=== PATIENT | female | born 1995 | race Caucasian/White ===

== ENCOUNTER 2016-10-05 15:59 | Emergency (ER) | payer OTHER ==
[~2016-10-05] VITALS: Ht 154.9 cm; Wt 49.1 kg
[2016-10-05 16:00] VITALS: TEMP 98.3; Ht 154.9 cm; Wt 49.1 kg
[2016-10-05] MEDS ORDERED: ASCO-324 PO (16:17)
[2016-10-05] MEDS ORDERED: RISP1TAB27 PO (16:17)
[2016-10-05] MEDS ORDERED: ETHI1TAB25 PO (16:17)
[2016-10-05] MEDS ORDERED: BIOT800T PO (16:19)
[2016-10-05] MEDS ORDERED: ACET-62 PO (16:19)
[2016-10-05] MEDS ORDERED: VITA1TAB21 PO (16:19)
[2016-10-05] MEDS ORDERED: CHOL200024 PO (16:19)
--- NOTE | 2016-10-05 16:26 | NUR ---
DR HURTADO IN
--- NOTE | 2016-10-05 16:33 | NUR ---
REPORT TO BRIDGET RHODES
--- NOTE | 2016-10-05 16:35 | ERPDOC ---
Departure Disposition Decision Date: Oct 05, 2016 Disposition Decision Time: 17:05 Disposition: 01 DISCHARGED HOME, SELF-CARE Impression Impression Impression: Primary Impression: Anxiety Additional Impression: Depression Depression Type: unspecified Qualified Codes: F32.9 - Major depressive disorder, single episode, unspecified Condition: Improved Seen By: Physician only Referrals: [facility] 1 Week Follow up within the next week with [facility] Patient Instructions: Anxiety (ED), Depression (ED) Problems/Meds/Labs Reviewed?: Yes Medications reviewed and manag: Yes Additional Instructions: 1) MAY TAKE ATIVAN 1 MG BY MOUTH EVERY 6 HOURS NEEDED FOR ANXIETY OR PANIC ATTACK 2) FOLLOW UP WITH YOUR PSYCHIATRIST IN NEXT 2-3 DAYS 3) CONTINUE HOME MEDICATIONS DIRECTED MAY CONTACT [facility] CRISIS LINE AT Departure Forms: Return to Work/School Permit Return to Work/School Date: October 08, 2016 Follow up care ordered?: Yes Mental Status: Alert, Oriented Scripts Lorazepam (Ativan) 1 Mg Tablet 1 MG PO Q6H for ANXIETY/AGITATION, #10 TAB 0 Refills Prov: ARMIDA HOOVER MD 10/05/16 HPI - Psychosocial General Chief Complaint: Psychiatric Problems Stated Complaint: ANXIETY,DEPRESSION Time Seen by MD: 16:09 Source: patient, family (former guardian) HPI - Psychosocial Initial Comments 20 YO WF who presents to ER for depression and anxiety. Patient and former guardian report problems with depression for "years." Patient just really sought treatment recently and was started on medication about a month ago. She sees a "psychiatrist" at [facility] who recently adjusted her anti- depressant. Today patient reportedly has been "crying all day." She is reportedly anxious and "almost having a panic attack" according to her former guardian. The anxiety is new for the patient. Patient denies suicidal ideation or any thoughts of harming herself. She denies homicidal ideation. She denies hearing voices or other delusions or hallucinations. Patient states she gets very anxious because she has a [address] work early in the morning and this worries her. Patient is also having financial difficulties which is why she gave up her apartment and moved in with her former guardian. These things are very stressful for her. Patient denies shortness of breath, dizziness, chest pain, nausea, vomiting, diarrhea, fever, chills. Patient denies she is . She is currently on control and denies sexual activity. Occurred At: home Associated Symptoms: anxiety, impaired concentration, DENIES: ingestion, injury , suicidal ideation Allergies: Coded Allergies: ibuprofen (Verified Allergy, Unknown, RASH, 10/05/16) pseudoephedrine (Verified Allergy, Unknown, RASH, 10/05/16) Past History Past Medical History Psychological: other (depression) Surgical History Denies Surgeries Family History Family History Comments Unknown. Adopted. Social History Smoking Status: Never smoker Substance Use Type: does not use Marital Status: Single Housing: house Household Members: foster family (former foster mother) Current Occupational Status: employed Review of Systems Constitutional Constitutional: insomnia, DENIES: chills, dizziness, fever, syncope, weakness Eyes General: DENIES: erythema, exudate, photophobia Vision: DENIES: blurring, double vision ENMT Sinuses: DENIES: congestion Nose: DENIES: nosebleeds Mouth/Throat: DENIES: change in swallowing, painful swallowing, sore throat Cardiovascular Cardiac: DENIES: chest pain, dyspnea on exertion Rhythm/Rate: DENIES: irregular beat, palpitations Pulmonary Respiratory: DENIES: cough, dyspnea, pleuritic chest pain, sputum GI Upper Abdomen: DENIES: nausea, vomiting Lower Abdomen: DENIES: constipation, diarrhea General: DENIES: burning, dysuria, frequency, pain, urgency Integumentary Skin: DENIES: rash Neurological General: DENIES: headache, numbness, seizures, syncope, weakness Psychiatric Psychiatric: anxiety, depression, DENIES: delusions, hallucinations, illusions , memory loss, suicidal ideation/attempt Hematologic/Lymphatic Hematologic/Lymphatic: DENIES: anemia, easy bruising Physical Exam General General Nourishment: well nourished, well developed, appears stated age, no acute distress Vitals and Pain First Documented Vital Signs Date Time Temp Pulse Resp B/P Pulse Ox O2 Delivery O2 Flow Rate FiO2 10/05/16 16:00 98.3 89 16 128/67 97 Room Air Weight: Kilograms: 49.100 Height (feet): 5 Height (inches): 1.00 Triage Pain Scale: Normal Exams: Head: Normocephalic w/o trauma Eyes: Pupils are PERRLA w/ EOMI, No scleral icterus ENMT: No facial trauma, nasal exudates, pharyngeal erythema, or exudates are noted Neck: Full range of motion, without adenopathy, JVD, bruits or thyromegaly Chest/Resp: Clear all noe, with good airflow, and symmetry bilaterally CV: Regular rate and rhythm, without murmur or gallop, Pulses 2+ all extremities, capillary refill, <2 seconds all ext., no pedal edema noted Abdomen: Bowel sounds positive, soft, non-tender, non-distended, no hepatosplenomegaly Lymphatic: No lymphadenopathy, or lymphedema noted Integumentary: No rashes, hives, or bruising noted, hair and nails, without abnormality Neurologic: Patient is alert, and oriented, cranial nerves, motor/sensory/ cerebellar, exams w/o gross deficits Psychiatric: Patient exhibits, appropriate attention, emotion and affect Differential Diagnoses Considering: Anxiety, Bipolar, Depression, Other (Stress reaction) Progress Results/Orders Orders Procedure Category Date Status Time Cbc W/Auto LAB 10/05/16 Complete Diff-Reflex Manual Bmp - Basic Metabolic LAB 10/05/16 Complete Panel LAB 10/05/16 Complete Qualitative, Serum 16:32 Tsh - Thyroid Stim LAB 10/05/16 Complete Hormone Ua, Dip Wreflex LAB 10/05/16 Complete [employer] 16:33 Lorazepam (Ativan) PHA 10/05/16 Complete 16:45 Lab Results Laboratory Tests Test 10/05/16 16:43 10/05/16 17:16 White Blood Count 10.5T/MM3 Red Blood Count 4.44M/MM3 Hemoglobin 12.8GM/DL Hematocrit 38.3% Mean Corpuscular Volume 86.3UM3 Mean Corpuscular Hemoglobin 28.8UUG Mean Corpuscular Hemoglobin Concent 33.4GM/DL RDW Standard Deviation 37.7FL Platelet Count 309T/MM3 Mean Platelet Volume 9.1UM3 Immature Granulocyte % (Auto) 0.4% Neutrophils (%) (Auto) 64.4% Lymphocytes (%) (Auto) 26.7% Monocytes (%) (Auto) 7.2% Eosinophils (%) (Auto) 1.0% Basophils (%) (Auto) 0.3% Absolute Immature Granulocyte (auto 0.04T/MM3 Absolute Neutrophils (auto) 6.8T/MM3 Absolute Lymphocytes (auto) 2.8T/MM3 Absolute Monocytes (auto) 0.8T/MM3 Absolute Eosinophils (auto) 0.1T/MM3 Absolute Basophils (auto) 0.0T/MM3 Turbidity < 20 Sodium Level 143MEQ/L Potassium Level 4.0MEQ/L Chloride Level 104MEQ/L Carbon Dioxide Level 25MEQ/L Anion Gap 14MEQ/L Blood Urea Nitrogen 12.0MG/DL Creatinine 0.6MG/DL Glomerular Filtration Rate Calc 126 BUN/Creatinine Ratio 20RATIO Glucose Level 104MG/DL Calculated Osmolality 275MOSM/KG Calcium Level 9.6MG/DL Icterus Index < 2 Thyroid Stimulating Hormone (TSH) 1.45MIU/L Human Chorionic Gonadotropin, Qual Negative Chemistry Specimen Hemolysis < 15 Urine Collection Type Cleancatch-midstream Urine Color Yellow Urine Turbidity Cloudy Urine pH 7.0 Urine Specific [place] 1.015 Urine Protein Negative Urine Glucose (UA) Negative Urine Ketones Negative Urine Blood Negative Urine Nitrite Negative Urine Bilirubin Negative Urine Urobilinogen 0.2EU/DL Urine Leukocyte Esterase Negative Urinalysis Comment Microscopic not ind. Medications Current ED Medications Lorazepam (Ativan) 1 mg O ONCE PO Last administered on 10/05/16 16:39; Start 10/05/16 at 16:45; Stop 10/05/16 at 16:46; Status DC Progress Progress Patient reports feeling better after Ativan PO. ARMIDA HOOVER MD Oct 05, 2016 16:35
[2016-10-05] MEDS ORDERED: LORAZEPAM 1 MG TABLET PO ONE (16:45)
[2016-10-05 16:53] LABS: BASOPHILS % (AUTO) 0.3 % (0-2); EOSINOPHILS # (AUTO) 0.1 T/MM3 (0-0.5); HCT - HEMATOCRIT 38.3 % (36-46); HGB - HEMOGLOBIN 12.8 GM/DL (12-16); IMMATURE GRANULOCYTE # (AUTO) 0.04 T/MM3 (0.00-0.03); IMMATURE GRANULOCYTE % (AUTO) 0.4 % (0.0-0.5); LYMPHOCYTES # (AUTO) 2.8 T/MM3 (1-4.8); LYMPHOCYTES % (AUTO) 26.7 % (23-45); MEAN CORPUSCULAR HGB 28.8 UUG (26-34); MEAN CORPUSCULAR HGB CONC(MCHC 33.4 GM/DL (31-37); MEAN CORPUSCULAR VOLUME 86.3 UM3 (80-100); MEAN PLATELET VOLUME 9.1 UM3 (9.4-12.4); MONOCYTES # (AUTO) 0.8 T/MM3 (0-0.8); MONOCYTES % (AUTO) 7.2 % (0-9.0); NEUTROPHILS #(AUTO)-ABSOLUTE 6.8 T/MM3 (1.8-7.7); NEUTROPHILS % (AUTO) 64.4 % (33-66); RED BLOOD COUNT 4.44 M/MM3 (4.00-5.20); WBC - WHITE BLOOD COUNT 10.5 T/MM3 (4.5-11.0)
[2016-10-05 16:59] LABS: ANION GAP 14 MEQ/L (5-15); BUN/CREATININE RATIO 20 RATIO (6-26); CALCIUM 9.6 MG/DL (8.4-10.2); CHLORIDE 104 MEQ/L (98-107); CO2 - CARBON DIOXIDE 25 MEQ/L (22-30); CREATININE 0.6 MG/DL (0.7-1.2); GLOMERULAR FILTRATION RATE 126; GLUCOSE 104 MG/DL (65-110); SODIUM 143 MEQ/L (134-144)
[2016-10-05] MEDS ORDERED: LORA-204 PO (17:11)
--- NOTE | 2016-10-05 17:12 | NUR ---
UPDATE/ACTIVITY PATIENT AMBULATORY TO RESTROOM TO PROVIDE UA, TOLERATES ACTIVITY WELL. PATIENT REPORTS HER ANXIETY HAS IMPROVED WELL.
[2016-10-05 17:20] LABS: BLOOD, URINE NEGATIVE (NEGATIVE); COLOR,URINE YELLOW (YELLOW); LEUKOCYTE ESTERASE ,URINE NEGATIVE (NEGATIVE); NITRITE,URINE NEGATIVE (NEGATIVE); UROBILINOGEN,URINE 0.2 EU/DL (NORMAL)
[2016-10-05 17:30] LABS: THYROID STIM HORMONE-TSH 1.45 MIU/L (0.47-4.68)
[2016-10-05 17:31] VITALS: BP 115/71; PULSE 85; RESP 17; O2SAT 97
== END 2016-10-05 17:31 | disposition home or self-care (01) ==
LOC: ED 15:59
DX: F41.8 Other specified anxiety disorders (principal); Z79.3 Long term (current) use of hormonal contraceptives; Z79.899 Other long term (current) drug therapy
CPT/HCPCS: 36415; 80048; 81003; 84443; 84703; 85025